=== PATIENT | male | born 1950 | race Caucasian/White ===

== ENCOUNTER 2017-06-06 05:47 | Inpatient (IN) ==
[2017-06-06] MEDS ORDERED: ceFAZolin 1,000 MG VIAL ONE (05:53)
[2017-06-06] MEDS ORDERED: VANCOMYCIN 1,000 MG VIAL ONE (05:54)
[2017-06-06] MEDS ORDERED: VANCOMYCIN INJ 1,000 MG in SODIUM CHLORIDE 0.9% 250 ML IV ONE (06:00)
[2017-06-06] MEDS ORDERED: ceFAZolin 1,000 MG in SYRINGE 1 EACH IV ONE (06:00)
[2017-06-06] MEDS ORDERED: ROPIVACAINE 0.5% 30 ML VIAL ONE (06:24)
[2017-06-06] MEDS ORDERED: TRANEXAMIC ACID 1,000 MG/10 ML VIAL IV ONE (06:38)
[2017-06-06] MEDS ORDERED: BACITRACIN OINT 0.9 GM PACK TOP ONE (06:38)
[2017-06-06] MEDS: LACTATED RINGERS 1,000 ML IV SCH ×2 (06:48→09:10)
[2017-06-06] MEDS ORDERED: MAGNESIUM HYDROXIDE SUSP 30 ML UDCUP PO PRN (07:16)
[2017-06-06] MEDS ORDERED: ONDANSETRON 4 MG/2 ML VIAL IV PRN (07:16)
[2017-06-06] MEDS ORDERED: ACETAMINOPHEN 325 MG TABLET PO PRN (07:16)
[2017-06-06] MEDS ORDERED: PROMETHAZINE 25 MG/1 ML VIAL IM PRN (07:16)
[2017-06-06] MEDS ORDERED: KETOROLAC 15 MG/1 ML VIAL IV PRN (07:16)
[2017-06-06] MEDS ORDERED: DESFLURANE 1 UNIT/15 MINUTE INH ONE (09:30)
[2017-06-06] MEDS ORDERED: PROPOFOL 200 MG/20 ML VIAL IV ONE (09:30)
[2017-06-06] MEDS ORDERED: NEOSTIGMINE 10 MG/10 ML VIAL ONE (09:31)
[2017-06-06] MEDS ORDERED: MIDAZOLAM 2 MG/2 ML VIAL ONE (09:31)
[2017-06-06] MEDS ORDERED: GLYCOPYRROLATE 0.4 MG/2 ML VIAL ONE (09:31)
[2017-06-06] MEDS ORDERED: PHENYLEPHRINE 10 MG/1 ML VIAL IV ONE (09:31)
[2017-06-06] MEDS ORDERED: fentaNYL 100 MCG/2 ML VIAL ONE (09:31)
[2017-06-06] MEDS ORDERED: KETOROLAC 30 MG/1 ML VIAL ONE (09:31)
[2017-06-06] MEDS ORDERED: ROCURONIUM 100 MG/10 ML VIAL IV ONE (09:32)
[2017-06-06] MEDS ORDERED: ACETAMINOPHEN 1,000 MG/100 ML VIAL IV ONE (09:32)
[2017-06-06] MEDS ORDERED: SODIUM CHLORIDE 0.9% 250 ML IV ONE (09:32)
[2017-06-06] MEDS ORDERED: LACTATED RINGERS 1,000 ML IV ONE (09:32)
[2017-06-06] MEDS: SOTALOL 80 MG TABLET PO SCH (11:24)
[2017-06-06] MEDS: amLODIPine 5 MG TABLET PO SCH (11:24)
[2017-06-06] MEDS: ACETAMINOPHEN 500 MG TABLET PO SCH ×3 (11:25→23:47)
[2017-06-06] MEDS: GEMFIBROZIL 600 MG TABLET PO SCH ×2 (13:25→20:25)
[2017-06-06] MEDS: FATTY ACIDS PO SCH (13:25)
[2017-06-06] MEDS: PANTOPRAZOLE 40 MG TABLET PO SCH (13:25)
[2017-06-06] MEDS: SIMVASTATIN 40 MG TABLET PO SCH (13:25)
[2017-06-06] MEDS: OMEGA 3 ACID ETHYL ESTERS 1 GM CAPSULE PO SCH (13:25)
[2017-06-06] MEDS: hydroCHLOROthiazide 12.5 MG CAPSULE PO SCH (13:25)
[2017-06-06] MEDS: CYANOCOBALAMIN 500 MCG TABLET PO SCH (13:25)
[2017-06-06] MEDS: TAMSULOSIN 0.4 MG CAPSULE PO SCH (13:25)
[2017-06-06] MEDS: ceFAZolin 1,000 MG in SYRINGE 1 EACH IV SCH ×2 (13:25→20:25)
[2017-06-06] MEDS: OMEGA PO SCH (13:25)
[2017-06-06] MEDS: MULTIVITAMIN (CENTRUM) TABLET PO SCH (13:25)
[2017-06-06] MEDS: HYDROmorphone 2 MG/1 ML VIAL IV PRN ×2 (20:24→23:39)
[2017-06-07] MEDS: HYDROmorphone 2 MG/1 ML VIAL IV PRN ×2 (03:16→07:15)
[2017-06-07] MEDS: ACETAMINOPHEN 500 MG TABLET PO SCH (05:57)
[2017-06-07] MEDS: ceFAZolin 1,000 MG in SYRINGE 1 EACH IV SCH (05:58)
[2017-06-07] MEDS: MULTIVITAMIN (CENTRUM) TABLET PO SCH (09:52)
[2017-06-07] MEDS: TAMSULOSIN 0.4 MG CAPSULE PO SCH (09:52)
[2017-06-07] MEDS: SOTALOL 80 MG TABLET PO SCH (09:52)
[2017-06-07] MEDS: PANTOPRAZOLE 40 MG TABLET PO SCH (09:53)
[2017-06-07] MEDS: amLODIPine 5 MG TABLET PO SCH (09:53)
[2017-06-07] MEDS: GEMFIBROZIL 600 MG TABLET PO SCH (09:53)
[2017-06-07] MEDS: OMEGA 3 ACID ETHYL ESTERS 1 GM CAPSULE PO SCH (09:53)
[2017-06-07] MEDS: CYANOCOBALAMIN 500 MCG TABLET PO SCH (09:53)
[2017-06-07] MEDS: hydroCHLOROthiazide 12.5 MG CAPSULE PO SCH (09:53)
[2017-06-07] MEDS: SIMVASTATIN 40 MG TABLET PO SCH (09:54)
[2017-06-07] MEDS: FATTY ACIDS PO SCH (13:48)
[2017-06-07] MEDS: OMEGA PO SCH (13:48)
[2017-06-07 17:17] VITALS: BP 163/70
== END 2017-06-07 17:05 | disposition home or self-care (01) | DRG 483 ==
LOC: N.SDSINP 05:47 → OBSVTOIN 05:47 → INTOOBSV 05:47 → N.3E 10:07
PROVIDERS: ADMIT Orthopaedic Surgery; ATTEND Orthopaedic Surgery